=== PATIENT | female | born 1970 | race Caucasian/White ===

== ENCOUNTER 2018-01-18 00:19 | Emergency (ER) | payer BC ==
--- NOTE | 2018-01-18 00:46 | EDM.PDOC ---
ED HPI GENERAL MEDICAL PROBLEM - General Chief Complaint: Syncope Stated Complaint: SYNCOPAL EPISODE Time Seen by Provider: 01/18/18 00:25 Source of Information: Reports: Patient, EMS History Limitations: Reports: No Limitations - History of Present Illness INITIAL COMMENTS - FREE TEXT/NARRATIVE: 47 YO WF presents to ER by EMS after a syncopal episode at home. Pt with history of recurrent syncopal episodes, approximately 5 episodes over the last year. Pt has an event monitor in case of episodes. Pt states she hasn't had an episode in approximately 6 months. Pt reports she woke and when to the bathroom due to an upset stomach. Pt had an episode of diarrhea and while on the toilet, passed out in her husbands arms. Pt did not hit the ground, or hit her head. Pt remained in a seated position until she became arousable, which lasted approximately 30 seconds per . Pt denies chest pain, vomiting, abdominal pain, recent illness, no fever/chills. Pt currently states she feels fine. Pt denies headache or shortness of breath. Onset: Sudden Onset Date: 01/18/18 Onset Time: 00:00 Location: Reports: Generalized Severity: Mild Improves with: Reports: None Worsens with: Reports: None Associated Symptoms: Reports: Syncope, Other (diarrhea). Denies: Confusion, Chest Pain, Cough, cough w sputum, Diaphoresis, Fever/Chills, Headaches, Loss of Appetite, Malaise, Nausea/Vomiting, Rash, Seizure, Shortness of Breath, Weakness - Related Data Allergies Allergy/AdvReac Type Severity Reaction Status Date / Time citalopram Allergy Nausea Verified 01/18/18 00:30 codeine Allergy Anaphylactic Verified 01/18/18 00:30 Shock Home Meds: Home Meds LORazepam 0.5 mg PO BID PRN 01/18/18 [History] Ondansetron [Ondansetron ODT] 4 mg PO Q4H PRN 01/18/18 [History] ED ROS GENERAL - Review of Systems Review Of Systems: See Below Constitutional: Reports: No Symptoms HEENT: Reports: No Symptoms Respiratory: Reports: No Symptoms Cardiovascular: Reports: No Symptoms Endocrine: Reports: No Symptoms GI/Abdominal: Reports: Diarrhea : Reports: No Symptoms Musculoskeletal: Reports: No Symptoms Skin: Reports: No Symptoms Neurological: Reports: Syncope Psychiatric: Reports: No Symptoms Hematologic/Lymphatic: Reports: No Symptoms - Physical Exam Exam: See Below Exam Limited By: No Limitations General Appearance: Alert, WD/WN, No Apparent Distress Throat/Mouth: Normal Inspection, Normal Lips, Normal Teeth, Normal Gums, Normal Oropharynx, Normal Voice, No Airway Compromise Head Exam: Atraumatic, Normocephalic Neck: Normal Inspection, Supple, Non-Tender, Full Range of Motion Respiratory/Chest: No Respiratory Distress, Lungs Clear, Normal Breath Sounds, No Accessory Muscle Use, Chest Non-Tender Cardiovascular: Normal Peripheral Pulses, Regular Rate, Rhythm, No Edema, No Gallop, No JVD, No Murmur, No Rub GI/Abdominal: Normal Bowel Sounds, Soft, Non-Tender, No Organomegaly, No Distention, No Abnormal Bruit, No Mass Neuro Exam (Abbreviated): Alert, Oriented, CN II-XII Intact, Normal Cognition, Normal Gait, Normal Reflexes, No Motor/Sensory Deficits Back Exam: Normal Inspection, Full Range of Motion, NT Extremities: Normal Inspection, Normal Range of Motion, Non-Tender, No Pedal Edema, Normal Capillary Refill Psychiatric: Normal Affect, Normal Mood Skin Exam: Warm, Dry, Intact, Normal Color, No Rash EKG INTERPRETATION EKG Date: 01/18/18 Time: 00:46 Rhythm: NSR Rate (Beats/Min): 68 [place]: Normal P-Wave: Present QRS: Normal ST-T: Normal QT: Normal Comparison: NA - No Prior EKG Course - Vital Signs Last Recorded V/S: Last Vital Signs Temp 37.0 C 01/18/18 00:30 Pulse 66 01/18/18 00:55 Resp 20 01/18/18 00:55 BP 122/59 L 01/18/18 00:55 Pulse Ox 98 01/18/18 00:55 Orthostatic Blood Pressure [ 134/72 Standing] Orthostatic Blood Pressure [ 130/67 Sitting] Orthostatic Blood Pressure [ 118/62 Supine] - Orders/Labs/Meds Orders: Active Orders 24 hr Category Date Time Status Cardiac Monitoring [RC] . DIRECTED Care 01/18/18 00:28 Active EKG Documentation Completion [RC] ASDIRECTED Care 01/18/18 00:29 Ordered Orthostatic Vital Signs [RC] ASDIRECTED Care 01/18/18 00:28 Ordered Chest 1V Frontal [CR] Stat Exams 01/18/18 00:28 Ordered Potassium Chloride [Klor-Con M20] Med 01/18/18 01:23 Once 40 meq PO ONETIME ONE Sodium Chloride 0.9% @ 999 MLS/HR (1000ml) Med 01/18/18 00:49 Ordered Sodium Chloride 0.9% [Normal Saline] 1,000 ml IV .BOLUS EKG 12 Lead [EK] Routine Ther 01/18/18 00:28 Ordered Medication Orders Sodium Chloride (Normal Saline) 1,000 mls @ 999 mls/hr IV .BOLUS ONE Stop: 01/18/18 01:49 Last Admin: 01/18/18 00:52 Dose: 999 mls/hr Potassium Chloride (Klor-Con M20) 40 meq PO ONETIME ONE Stop: 01/18/18 01:24 Labs: Laboratory Tests 01/18/18 01/18/18 Range/Units 00:35 00:35 WBC 8.5 (5.0-10.0) 10^3/uL RBC 4.72 (3.80-5.50) 10^6/uL Hgb 14.4 (12.0-16.0) g/dL Hct 45.1 (37.0-47.0) % MCV 95.5 H (82.0-92.0) fL MCH 30.5 (27.0-31.0) pg MCHC 31.9 L (32.0-36.0) g/dL RDW 12.2 (11.5-14.5) % Plt Count 280 (150-300) 10^3/uL MPV 8.9 (7.4-10.4) fL Neut % (Auto) 40.8 L (50.0-70.0) % Lymph % (Auto) 46.0 H (20.0-40.0) % [place] % (Auto) 9.9 H (2.0-8.0) % Eos % (Auto) 2.4 (1.0-3.0) % Baso % (Auto) 0.9 (0.0-1.0) % Neut # (Auto) 3.5 (2.5-7.0) 10^3/uL Lymph # (Auto) 3.9 (1.0-4.0) 10^3/uL [place] # (Auto) 0.8 (0.1-0.8) 10^3/uL Eos # (Auto) 0.2 (0.1-0.3) 10^3/uL Baso # (Auto) 0.1 (0.0-0.1) 10^3/uL Sodium 140 (136-145) mmol/L Potassium 2.8 L (3.3-5.3) mmol/L Chloride 102 (98-115) mmol/L Carbon Dioxide 24.1 (21.0-32.0) mmol/L BUN 15 (6-25) mg/dL Creatinine 0.77 (0.51-1.17) mg/dL Est Cr Clr Drug Dosing 82.15 mL/min Estimated GFR (MDRD) > 60 mL/min Glucose 115 H (70-110) mg/dL Calcium 9.7 (8.7-10.3) mg/dL Total Bilirubin 0.3 (0.2-1.0) mg/dL AST 24 (15-37) U/L ALT 30 (12-78) U/L Alkaline Phosphatase 56 (46-116) IU/L Creatine Kinase 204 (26-276) U/L CK-MB (CK-2) 2.00 (0.00-4.30) ng/mL Troponin I 0.04 (0.00-0.070) ng/mL Total Protein 7.5 (6.4-8.2) g/dL Albumin 4.14 (3.00-4.80) g/dL Meds: Medications Generic Name Dose Route Start Last Admin Trade Name Freq PRN Reason Stop Dose Admin Sodium Chloride 1,000 mls @ 999 mls/hr 01/18/18 00:49 01/18/18 00:52 Normal Saline IV 01/18/18 01:49 999 mls/hr .BOLUS ONE Administration Potassium Chloride 40 meq 01/18/18 01:23 Klor-Con M20 PO 01/18/18 01:24 ONETIME ONE Discontinued Medications Generic Name Dose Route Start Last Admin Trade Name Freq PRN Reason Stop Dose Admin Ondansetron HCl 4 mg 01/18/18 00:49 01/18/18 01:07 Zofran IVPUSH 01/18/18 00:50 4 mg ONETIME ONE Administration - Radiology Interpretation Free Text/Narrative:: CXR- NAD - Re-Assessments/Exams Free Text/Narrative Re-Assessment/Exam: 01/18/18 00:49 orthostatic vital signs- normal; no hypotension or tachycardia Departure - Departure Time of Disposition: 01:26 Disposition: Home, Self-Care 01 Condition: Good Clinical Impression: Vasovagal syncope - Discharge Information Instructions: Implantable Loop Recorder Placement, Vasovagal Syncope, Adult Referrals: Alison New, BUR[facility] FILER [Primary Care Provider] - Forms: ED Department Discharge - My Orders Last 24 Hours: My Active Orders 01/18/18 00:28 Cardiac Monitoring [RC] . DIRECTED Orthostatic Vital Signs [RC] ASDIRECTED Chest 1V Frontal [CR] Stat EKG 12 Lead [EK] Routine 01/18/18 00:29 EKG Documentation Completion [RC] ASDIRECTED 01/18/18 00:49 Sodium Chloride 0.9% @ 999 MLS/HR (1000ml) Sodium Chloride 0.9% [Normal Saline] 1,000 ml IV .BOLUS 01/18/18 01:23 Potassium Chloride [Klor-Con M20] 40 meq PO ONETIME ONE - Assessment/Plan Last 24 Hours: My Active Orders 01/18/18 00:28 Cardiac Monitoring [RC] . DIRECTED Orthostatic Vital Signs [RC] ASDIRECTED Chest 1V Frontal [CR] Stat EKG 12 Lead [EK] Routine 01/18/18 00:29 EKG Documentation Completion [RC] ASDIRECTED 01/18/18 00:49 Sodium Chloride 0.9% @ 999 MLS/HR (1000ml) Sodium Chloride 0.9% [Normal Saline] 1,000 ml IV .BOLUS 01/18/18 01:23 Potassium Chloride [Klor-Con M20] 40 meq PO ONETIME ONE Assessment:: 1. Syncope- probable vasovagal 2. Hypokalemia Plan: 1. discharge home 2. follow up in clinic for further evaluation and treatment 3. return to ER for worsening symptoms
[2018-01-18] MEDS ORDERED: Ondansetron 4 MG/2 ML SDV IVPUSH ONE (00:49)
[2018-01-18] MEDS ORDERED: Sodium Chloride 0.9% 1,000 ML IV ONE (00:49)
[2018-01-18 01:17] LABS: CHLORIDE,CL 102 mmol/L (98-115); SODIUM,NA 140 mmol/L (136-145)
[2018-01-18] MEDS ORDERED: Potassium Chloride 20 MEQ Tab.ER PO ONE (01:23)
== END 2018-01-18 01:42 | disposition home or self-care (01) ==
LOC: KA.ED 00:19 → SUPCPDRO 00:19 → KA.ED 01:42
DX: R55 Syncope and collapse (principal); E87.6 Hypokalemia; Z88.5 Allergy status to narcotic agent; Z88.8 Allergy status to other drugs, medicaments and biological substances; Z79.899 Other long term (current) drug therapy
CPT/HCPCS: 71045; 80053; 82550; 82553; 84484; 85025; 93005; 96374; 99285; A9270; J2405; J7030

== ENCOUNTER 2018-02-20 23:06 | Observation (INO) | payer BC ==
[2018-02-20] MEDS ORDERED: Ondansetron 4 MG/2 ML SDV IVPUSH ONE (23:48)
[2018-02-21 00:32] LABS: ANION GAP 17.6 mmol/L (5-15); CHLORIDE,CL 102 mmol/L (98-115); SODIUM,NA 143 mmol/L (136-145)
[2018-02-21] MEDS ORDERED: Acetaminophen 325 MG Tab PO PRN (00:58)
[2018-02-21] MEDS ORDERED: Ondansetron 4 MG/2 ML SDV IVPUSH PRN (01:02)
--- NOTE | 2018-02-21 01:09 | EDM.PDOC ---
ED HPI GENERAL MEDICAL PROBLEM - General Chief Complaint: General Stated Complaint: tachycardia, nausea, lightheaded Time Seen by Provider: 02/20/18 23:15 Source of Information: Reports: Patient, Family () - History of Present Illness INITIAL COMMENTS - FREE TEXT/NARRATIVE: 47-year-old female presents to emergency room brought in by EMS with complaints of lightheadedness, nausea and palpitations. Patient has had a recent pacemaker placement for sick sinus syndrome. This was placed 2 weeks ago. She states she' s been doing very well. She did have an episode shortly after placement of her pacemaker where she had a syncopal episode. They turned her pacemaker up for rates between 60 and 80. She states she drinks plenty water has been feeling fairly well. She was at a baseball game this evening and felt lightheaded. She went to the [facility] EMS station where they did an EKG and this was reviewed by bench shear operator in [place] she is brought in now for further evaluation. Her only complaint currently is a mild nausea. She had an EKG showed normal sinus rhythm. She's not having any shortness of breath or chest pain. She is not experiencing palpitations. She did take a Zofran ODT but her nausea still persists. She felt clammy earlier but that is since resolved. Onset: Today Onset Date: 02/20/18 Onset Time: 22:00 Duration: Minutes:, Waxing/Waning Location: Reports: Chest Quality: Reports: Dull Severity: Moderate Improves with: Reports: Rest Associated Symptoms: Reports: Diaphoresis, Nausea/Vomiting, Weakness. Denies: Chest Pain, Cough, Headaches, Shortness of Breath, Syncope Treatments FOOD DEHYDRATOR OPERATOR: Reports: Other Medication(s) (Zofran ODT) - Related Data Allergies Allergy/AdvReac Type Severity Reaction Status Date / Time citalopram Allergy Nausea Verified 02/20/18 23:22 codeine Allergy Anaphylactic Verified 02/20/18 23:22 Shock Home Meds: Home Meds LORazepam 0.5 mg PO BID PRN 01/18/18 [History] Ondansetron [Ondansetron ODT] 4 mg PO Q4H PRN 01/18/18 [History] Docusate Sodium 100 mg PO DAILY PRN 02/21/18 [History] Ibuprofen 400 mg PO Q8H PRN 02/21/18 [History] L.acidoph,Paracasei, B.lactis [Probiotic] 1 cap PO DAILY 02/21/18 [History] Past Medical History HEENT History: Reports: Other (See Below) Other HEENT History: glasses Cardiovascular History: Reports: Pacemaker, Syncope Other Cardiovascular History: pacer placed on 02/09/2108 for sick sinus syndrom - pacer does transmit via bedside monitor PREDATORY ANIMAL EXTERMINATOR History: Reports: , Other (See Below) Other PREDATORY ANIMAL EXTERMINATOR History: falopian tubes removed bilat Psychiatric History: Reports: Anxiety, Depression - Infectious Disease History Infectious Disease History: Reports: Chicken Pox - Past Surgical History Head Surgeries/Procedures: Reports: None HEENT Surgical History: Reports: None Cardiovascular Surgical History: Reports: Other (See Below) Other Cardiovascular Surgeries/Procedures: Implanted Loop recorder - has been removed Musculoskeletal Surgical History: Reports: Other (See Below) Other Musculoskeletal Surgeries/Procedures:: ACL repair L knee Social & Family History - Caffeine Use Caffeine Use: Reports: Coffee ED ROS GENERAL - Review of Systems Review Of Systems: See Below Constitutional: Reports: Diaphoresis HEENT: Reports: No Symptoms Respiratory: Reports: No Symptoms Cardiovascular: Reports: No Symptoms Endocrine: Reports: No Symptoms GI/Abdominal: Reports: No Symptoms : Reports: No Symptoms Musculoskeletal: Reports: No Symptoms Skin: Reports: No Symptoms Neurological: Reports: Weakness, Other (Lightheadedness). Denies: Confusion, Dizziness, Numbness, Syncope, Tingling, Trouble Speaking, Change in Speech Psychiatric: Reports: No Symptoms Hematologic/Lymphatic: Reports: No Symptoms Immunologic: Reports: No Symptoms ED EXAM, GENERAL - Physical Exam Exam: See Below Exam Limited By: No Limitations General Appearance: Alert, WD/WN, No Apparent Distress, Thin Eye Exam: Bilateral Eye: PERRL Ears: Hearing Grossly Normal Nose: Normal Inspection Throat/Mouth: Normal Inspection, Normal Voice, No Airway Compromise Head: Atraumatic, Normocephalic Neck: Normal Inspection, Supple, Non-Tender, Full Range of Motion. No: Lymphadenopathy (L), Lymphadenopathy (R) Respiratory/Chest: No Respiratory Distress, Lungs Clear Cardiovascular: Normal Peripheral Pulses, Regular Rate, Rhythm, No Edema, No Murmur Back Exam: Normal Inspection, Full Range of Motion Extremities: Normal Inspection, Normal Range of Motion Neurological: Alert, Oriented, No Motor/Sensory Deficits Psychiatric: Normal Affect, Normal Mood Skin Exam: Warm, Dry, Intact, Normal Color, No Rash EKG INTERPRETATION EKG Date: 02/20/18 Time: 23:30 Rhythm: NSR [place]: Normal P-Wave: Present QRS: Normal ST-T: Normal QT: Normal Comparison: NA - No Prior EKG Course - Vital Signs Last Recorded V/S: Last Vital Signs Temp 98.4 F 02/20/18 23:20 Pulse 67 02/21/18 00:38 Resp 12 02/21/18 00:38 BP 110/58 L 02/21/18 00:38 Pulse Ox 100 02/20/18 23:20 - Orders/Labs/Meds Orders: Active Orders 24 hr Category Date Time Status Patient Status [ADT] Routine ADT 02/21/18 00:58 Ordered EKG Documentation Completion [RC] ASDIRECTED Care 02/20/18 23:52 Active Up With Assistance [RC] ASDIRECTED Care 02/21/18 00:58 Ordered Vital Signs [RC] Q4H Care 02/21/18 00:58 Ordered Regular Diet [DIET] Diet 02/21/18 Breakfast Ordered Acetaminophen [Tylenol] Med 02/21/18 00:58 Ordered 650 mg PO Q4H PRN Ondansetron [Zofran] Med 02/21/18 01:02 Ordered 4 mg IVPUSH Q6H PRN EKG 12 Lead [EK] Routine Ther 02/20/18 23:51 Ordered Medication Orders Acetaminophen (Tylenol) 650 mg PO Q4H PRN PRN Reason: analgesia/fever Ondansetron HCl (Zofran) 4 mg IVPUSH Q6H PRN PRN Reason: Nausea/Vomiting Labs: Laboratory Tests 02/20/18 02/20/18 Range/Units 23:02 23:02 WBC 6.5 (5.0-10.0) 10^3/uL RBC 4.18 (3.80-5.50) 10^6/uL Hgb 13.6 (12.0-16.0) g/dL Hct 39.6 (37.0-47.0) % MCV 94.7 H (82.0-92.0) fL MCH 32.5 H (27.0-31.0) pg MCHC 34.3 (32.0-36.0) g/dL RDW 12.3 (11.5-14.5) % Plt Count 298 (150-300) 10^3/uL MPV 8.8 (7.4-10.4) fL Neut % (Auto) 51.2 (50.0-70.0) % Lymph % (Auto) 35.8 (20.0-40.0) % [place] % (Auto) 9.2 H (2.0-8.0) % Eos % (Auto) 2.6 (1.0-3.0) % Baso % (Auto) 1.2 H (0.0-1.0) % Neut # (Auto) 3.3 (2.5-7.0) 10^3/uL Lymph # (Auto) 2.3 (1.0-4.0) 10^3/uL [place] # (Auto) 0.6 (0.1-0.8) 10^3/uL Eos # (Auto) 0.2 (0.1-0.3) 10^3/uL Baso # (Auto) 0.1 (0.0-0.1) 10^3/uL Sodium 143 (136-145) mmol/L Potassium 3.6 (3.3-5.3) mmol/L Chloride 102 (98-115) mmol/L Carbon Dioxide 27.0 (21.0-32.0) mmol/L Anion Gap 17.6 H (5-15) mmol/L BUN 13 (6-25) mg/dL Creatinine 0.71 (0.51-1.17) mg/dL Est Cr Clr Drug Dosing 89.09 mL/min Estimated GFR (MDRD) > 60 mL/min Glucose 112 mg/dL Calcium 9.3 (8.7-10.3) mg/dL Meds: Medications Generic Name Dose Route Start Last Admin Trade Name Freq PRN Reason Stop Dose Admin Acetaminophen 650 mg 02/21/18 00:58 Tylenol PO Q4H PRN analgesia/fever Ondansetron HCl 4 mg 02/21/18 01:02 Zofran IVPUSH Q6H PRN Nausea/Vomiting Discontinued Medications Generic Name Dose Route Start Last Admin Trade Name Freq PRN Reason Stop Dose Admin Ondansetron HCl 4 mg 02/20/18 23:48 02/20/18 23:57 Zofran IVPUSH 02/20/18 23:49 4 mg ONETIME ONE Administration Departure - Departure Time of Disposition: 01:13 Disposition: Refer to Observation Condition: Good Clinical Impression: S/P placement of cardiac pacemaker, Lightheadedness - Discharge Information Referrals: Alison New MANAGER PRIMARY CARE [Primary Care Provider] - - My Orders Last 24 Hours: My Active Orders 02/20/18 23:51 EKG 12 Lead [EK] Routine 02/20/18 23:52 EKG Documentation Completion [RC] ASDIRECTED 02/21/18 00:58 Patient Status [ADT] Routine Up With Assistance [RC] ASDIRECTED Vital Signs [RC] Q4H Acetaminophen [Tylenol] 650 mg PO Q4H PRN 02/21/18 01:02 Ondansetron [Zofran] 4 mg IVPUSH Q6H PRN 02/21/18 Breakfast Regular Diet [DIET] - Assessment/Plan Last 24 Hours: My Active Orders 02/20/18 23:51 EKG 12 Lead [EK] Routine 02/20/18 23:52 EKG Documentation Completion [RC] ASDIRECTED 02/21/18 00:58 Patient Status [ADT] Routine Up With Assistance [RC] ASDIRECTED Vital Signs [RC] Q4H Acetaminophen [Tylenol] 650 mg PO Q4H PRN 02/21/18 01:02 Ondansetron [Zofran] 4 mg IVPUSH Q6H PRN 02/21/18 Breakfast Regular Diet [DIET] Assessment:: Recent pacemaker placement Lightheadedness Nausea Plan: Patient will be admitted for observational status on cardiac telemetry. She has had couple episodes since her pacemaker placement where she has had one syncopal episode as well as lightheadedness. We will monitor overnight make sure that there is no significant arrhythmias occurring. We'll place her on observational status. Dr. Duane Suarez for this who will assume her care.
[2018-02-21] MEDS ORDERED: Metoclopramide 10 MG/2 ML SDV IVPUSH ONE (02:01)
[2018-02-21] MEDS ORDERED: Lidocaine 2% 100 MG/5 ML Syringe IVPUSH PRN (04:05)
[2018-02-21] MEDS ORDERED: EPINEPHrine 1:10,000 1 MG/10 ML Syringe IVPUSH PRN (04:05)
[2018-02-21] MEDS ORDERED: Atropine 0.1 MG/ML 10 ML Syringe IVPUSH PRN (04:05)
[2018-02-21] MEDS ORDERED: Nitroglycerin 0.4 MG Tab.SL SL PRN (04:05)
--- NOTE | 2018-02-21 10:00 | PCM.HP ---
H&P History of Present Illness - General Date of Service: 02/21/18 Admit Problem/Dx: Admission Diagnosis/Problem Admission Diagnosis/Problem Cardiac pacemaker procedure Source of Information: Patient, Old Records, RN History Limitations: Reports: No Limitations - History of Present Illness Initial Comments - Free Text/Narative: This 47-year-old was admitted through the ED for observation after she had a near syncope episode while attending a baseball game last night prompting ambulance call. She was attending her son's baseball game she noticed she started getting nausea with mild GI symptoms, slight chest palpitations and lightheadedness. Patient does have SSS with recent biventricular permanent pacemaker placed February 08, 2018 however while in [place] under observation and under the care of Dr. Tapia after pacemaker placement she had developed proximately 1 minute unresponsiveness with captured bradycardia (40') on her pacemaker requiring threshold adjustments--lower rate increased to 60 bpm, upper rate changed from 100 to 80 (only for 1 minute) to avoid patient feeling like her heart is racing. Her symptoms that prompted her ED visit she stated were very similar that eventually prompted cardiology to place pacemaker. Prior to her pacemaker placed she had extensive evaluation at [facility] including EKG, echocardiogram, or monitors however it was not until she had an implantable cardiac device that eventually demonstrated her to have episodes of asystole eventually prompting cardiac pacemaker placement. During her symptoms and while at the baseball game she sought help at the EMS station, EKG was performed and transmitted to marksmanship instructor in [place] questing she be brought in further evaluation. ED physical examination was negative for shortness of breath chest pain or palpitations. She had taken a Zofran ODT however she was still nauseous while in the ED. She does have an appointment with cardiology March 19 however she was informed if she has any episodes she could likely get seen sooner. Potassium normally runs low when she has episodes. Recent CXR showed intact pacer leads, and no pleural effusion or pneumothorax. She denies chest pain or SOB - Related Data Allergies/Adverse Reactions: Allergies Allergy/AdvReac Type Severity Reaction Status Date / Time citalopram Allergy Nausea Verified 02/20/18 23:22 codeine Allergy Anaphylactic Verified 02/20/18 23:22 Shock Home Medications: Home Meds LORazepam 0.5 mg PO BID PRN 01/18/18 [History] Ondansetron [Ondansetron ODT] 4 mg PO Q4H PRN 01/18/18 [History] Docusate Sodium 100 mg PO DAILY PRN 02/21/18 [History] Ibuprofen 400 mg PO Q8H PRN 02/21/18 [History] L.acidoph,Paracasei, B.lactis [Probiotic] 1 cap PO DAILY 02/21/18 [History] Past Medical History HEENT History: Reports: Other (See Below) Other HEENT History: glasses Cardiovascular History: Reports: Pacemaker, Syncope Other Cardiovascular History: pacer placed on 02/09/2108 for sick sinus syndrome - pacer does transmit via bedside monitor 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: Reports: , Other (See Below) Other OB/BYN History: falopian tubes removed bilat Psychiatric History: Reports: Anxiety, Depression - Infectious Disease History Infectious Disease History: Reports: Chicken Pox - Past Surgical History Head Surgeries/Procedures: Reports: None HEENT Surgical History: Reports: None Cardiovascular Surgical History: Reports: Other (See Below) Other Cardiovascular Surgeries/Procedures: Implanted Loop recorder - has been removed Musculoskeletal Surgical History: Reports: Other (See Below) Other Musculoskeletal Surgeries/Procedures:: ACL repair L knee Social & Family History - Family History HEENT: Reports: None Cardiac: Reports: Hypertension Respiratory: Reports: None GI: Reports: None : Reports: None OBGYN: Reports: None Musculoskeletal: Reports: None Neurological: Reports: None Psychiatric: Reports: Depression Endocrine/Metabolic: Reports: Diabetes, type II Hematologic: Reports: Other (See Below) (father with lymphoma) Immunologic: Reports: None Dermatologic: Reports: None - Tobacco Use Smoking Status *Q: Never Smoker - Caffeine Use Caffeine Use: Reports: Coffee - Recreational Drug Use Recreational Drug Use: No H&P Review of Systems - Review of Systems: Review Of Systems: See Below General: Reports: Malaise. Denies: Fever, Chills, Night Sweats, Diaphoresis, Decreased Appetite HEENT: Reports: No Symptoms Pulmonary: Reports: No Symptoms Cardiovascular: Reports: Syncope. Denies: Chest Pain, Palpitations, PND, Edema , Lightheadedness, Claudication Gastrointestinal: Reports: No Symptoms, Constipation (recent hx of opoid induced constipation) Genitourinary: Reports: No Symptoms Musculoskeletal: Reports: No Symptoms Skin: Reports: No Symptoms Psychiatric: Reports: No Symptoms Neurological: Reports: Syncope, Weakness Hematologic/Lymphatic: Reports: No Symptoms Immunologic: Reports: No Symptoms Exam - Exam Exam: See Below - Vital Signs Vital Signs: Last Vital Signs Temp 98.4 F 02/21/18 06:51 Pulse 62 02/21/18 06:51 Resp 16 02/21/18 06:51 BP 104/58 L 02/21/18 06:51 Pulse Ox 98 02/21/18 06:51 Weight: 131 lb 12.8 oz - Exam Quality Assessment: No: Supplemental Oxygen General: Alert, Oriented, Mild Distress Neck: Supple Lungs: Clear to Auscultation, Normal Respiratory Effort Cardiovascular: Regular Rate, Regular Rhythm, Other (Assess to her cardiac status left lateral decubitus, normal) GI/Abdominal Exam: Soft (Female) Exam: Deferred Back Exam: No: CVA Tenderness (L), CVA Tenderness (R) Extremities: No Pedal Edema Skin: Warm, Dry, Intact Neurological: Cranial Nerves Intact, Reflexes Equal Bilateral Neuro Extensive - Mental Status: Alert, Oriented x3. No: Normal Mood/Affect ( Slightly tearful this morning) Neuro Extensive - Motor, Sensory, Reflexes: CN II-XII Intact, Normal Gait, Normal Reflexes Psychiatric: Alert, Anxious (Slightly emotional and tearful this morning) - Patient Data Lab Results Last 24 hrs: Laboratory Results - last 24 hr 02/20/18 02/20/18 Range/Units 23:02 23:02 WBC 6.5 (5.0-10.0) 10^3/uL RBC 4.18 (3.80-5.50) 10^6/uL Hgb 13.6 (12.0-16.0) g/dL Hct 39.6 (37.0-47.0) % MCV 94.7 H (82.0-92.0) fL MCH 32.5 H (27.0-31.0) pg MCHC 34.3 (32.0-36.0) g/dL RDW 12.3 (11.5-14.5) % Plt Count 298 (150-300) 10^3/uL MPV 8.8 (7.4-10.4) fL Neut % (Auto) 51.2 (50.0-70.0) % Lymph % (Auto) 35.8 (20.0-40.0) % [place] % (Auto) 9.2 H (2.0-8.0) % Eos % (Auto) 2.6 (1.0-3.0) % Baso % (Auto) 1.2 H (0.0-1.0) % Neut # (Auto) 3.3 (2.5-7.0) 10^3/uL Lymph # (Auto) 2.3 (1.0-4.0) 10^3/uL [place] # (Auto) 0.6 (0.1-0.8) 10^3/uL Eos # (Auto) 0.2 (0.1-0.3) 10^3/uL Baso # (Auto) 0.1 (0.0-0.1) 10^3/uL Sodium 143 (136-145) mmol/L Potassium 3.6 (3.3-5.3) mmol/L Chloride 102 (98-115) mmol/L Carbon Dioxide 27.0 (21.0-32.0) mmol/L Anion Gap 17.6 H (5-15) mmol/L BUN 13 (6-25) mg/dL Creatinine 0.71 (0.51-1.17) mg/dL Est Cr Clr Drug Dosing 89.09 mL/min Estimated GFR (MDRD) > 60 mL/min Glucose 112 mg/dL Calcium 9.3 (8.7-10.3) mg/dL Result Diagrams: 02/20/18 23:02 02/20/18 23:02 EKG INTERPRETATION EKG Date: 02/20/18 Rhythm: NSR [place]: Normal P-Wave: Present QRS: Normal ST-T: Normal QT: Normal Comparison: No Change Problem List Initiated/Reviewed/Updated: Yes Orders Last 24hrs: Active Orders 24 hr Category Date Time Status Patient Status [ADT] Routine ADT 02/21/18 00:58 Ordered EKG Documentation Completion [RC] ASDIRECTED Care 02/20/18 23:52 Active Up With Assistance [RC] ASDIRECTED Care 02/21/18 00:58 Active Vital Signs [RC] 0300,0700,1100,1500,1900,2300 Care 02/21/18 00:58 Active Regular Diet [DIET] Diet 02/21/18 Breakfast Active Acetaminophen [Tylenol] Med 02/21/18 00:58 Active 650 mg PO Q4H PRN Atropine [Atropine 0.1 MG/ML] Med 02/21/18 04:05 Active 0 mg IVPUSH ASDIRECTED PRN EPINEPHrine [EPINEPHrine 1:10,000] Med 02/21/18 04:05 Active 1 mg IVPUSH ASDIRECTED PRN Lidocaine 2% [Xylocaine 2%] Med 02/21/18 04:05 Active 0 mg IVPUSH ASDIRECTED PRN Nitroglycerin [Nitrostat] Med 02/21/18 04:05 Active 0.4 mg SL ASDIRECTED PRN Ondansetron [Zofran] Med 02/21/18 01:02 Active 4 mg IVPUSH Q6H PRN EKG 12 Lead [EK] Routine Ther 02/20/18 23:51 Ordered Medication Orders Acetaminophen (Tylenol) 650 mg PO Q4H PRN PRN Reason: analgesia/fever Atropine Sulfate (Atropine 0.1 Mg/Ml) 0 mg IVPUSH ASDIRECTED PRN PRN Reason: Heart Epinephrine HCl (Epinephrine 1:10,000) 1 mg IVPUSH ASDIRECTED PRN PRN Reason: Heart Lidocaine HCl (Xylocaine 2%) 0 mg IVPUSH ASDIRECTED PRN PRN Reason: Heart Nitroglycerin (Nitrostat) 0.4 mg SL ASDIRECTED PRN PRN Reason: Heart Ondansetron HCl (Zofran) 4 mg IVPUSH Q6H PRN PRN Reason: Nausea/Vomiting Last Admin: 02/21/18 08:49 Dose: 4 mg Assessment/Plan Comment:: HISTORY OF PRESENT ILLNESS This 47-year-old was admitted through the ED for observation after she had a near syncope episode while attending a baseball game last night prompting ambulance call. She was attending her son's baseball game she noticed she started getting nausea with mild GI symptoms, slight chest palpitations and lightheadedness. Patient does have SSS with recent biventricular permanent pacemaker placed February 08, 2018 however while in [place] under observation and under the care of Dr. Tapia after pacemaker placement she had developed proximately 1 minute unresponsiveness with captured bradycardia (40') on her pacemaker requiring threshold adjustments--lower rate increased to 60 bpm, upper rate changed from 100 to 80 (only for 1 minute) to avoid patient feeling like her heart is racing. Her symptoms that prompted her ED visit she stated were very similar that eventually prompted cardiology to place pacemaker. Prior to her pacemaker placed she had extensive evaluation at [facility] including EKG, echocardiogram, or monitors however it was not until she had an implantable cardiac device that eventually demonstrated her to have episodes of asystole eventually prompting cardiac pacemaker placement. During her symptoms and while at the baseball game she sought help at the EMS station, EKG was performed and transmitted to marksmanship instructor in [place] questing she be brought in further evaluation. ED physical examination was negative for shortness of breath chest pain or palpitations. She had taken a Zofran ODT however she was still nauseous while in the ED. She does have an appointment with cardiology March 19 however she was informed if she has any episodes she could likely get seen sooner. Potassium normally runs low when she has episodes. Recent CXR showed intact pacer leads, and no pleural effusion or pneumothorax. She denies chest pain or SOB Pertinent ED findings EKG, NSR, no aberrancy Blood pressure 130/70 Normal electrolytes, Hospital problems Sick sinus syndrome, recent biventricular pacemaker, with subsequent adjustments Anxiety/depression Overall plan today, Lorazepam today, Assess Mg, TSH, telemetry, have spouse bring in pacemaker transmitter, ambulate in halls today, add low dose oral potassium, continue observation and monitor her today. Activity: Due to recent pacemaker no raising arm above shoulder level for 6 weeks, no lifting greater than 10 pounds for 6 weeks. Patient does agree to stay today for further observation however likely will discharge in a.m. and will consult with cardiology for earlier appointment and follow-up.
[2018-02-21] MEDS ORDERED: Potassium Bicarbonate/Potassium Chloride 25 MEQ Tab.Eff PO SCH (12:00)
[2018-02-21] MEDS ORDERED: Ondansetron 4 MG Tab.DIS PO PRN (12:16)
[2018-02-21] MEDS ORDERED: Docusate Sodium 100 MG Cap PO PRN (12:19)
[2018-02-21] MEDS ORDERED: LORazepam 0.5 MG Tab PO PRN (12:30)
--- NOTE | 2018-02-21 20:48 | PCM.DCSUM1 ---
Discharge Summary - Hospital Course Diagnosis: Stroke: No - Discharge Data Discharge Date: 02/21/18 Discharge Disposition: Home, Self-Care 01 Condition: Good - Patient Summary/Data Complications: none Recommended Follow-up Testing/Procedures: f/u with PCP tomorrow. May need sooner cardiology appt. - Discharge Plan *PRESCRIPTION DRUG MONITORING PROGRAM REVIEWED*: No *COPY OF PRESCRIPTION DRUG MONITORING REPORT IN PATIENT DALILA: No Home Medications: Home Meds LORazepam 0.5 mg PO BID PRN 01/18/18 [History] Ondansetron [Ondansetron ODT] 4 mg PO Q4H PRN 01/18/18 [History] Docusate Sodium 100 mg PO DAILY PRN 02/21/18 [History] Ibuprofen 400 mg PO Q8H PRN 02/21/18 [History] L.acidoph,Paracasei, B.lactis [Probiotic] 1 cap PO DAILY 02/21/18 [History] Forms: ED Department Discharge Referrals: Alison New, UTILITY ASSEMBLER [Primary Care Provider] - - Discharge Summary/Plan Comment DC Time >30 min.: No Discharge Summary/Plan Comment: Final Dx: Near Syncope Sick sinus syndrome Anxiety/depression History This 47-year-old was admitted through the ED for observation after she had a near syncope episode while attending a baseball game last night prompting ambulance call. She was attending her son's baseball game she noticed she started getting nausea with mild GI symptoms, slight chest palpitations and lightheadedness. Patient does have SSS with recent biventricular permanent pacemaker placed February 08, 2018 however while in [place] under observation and under the care of Dr. Tapia after pacemaker placement she had developed proximately 1 minute unresponsiveness with captured bradycardia (40') on her pacemaker requiring threshold adjustments--lower rate increased to 60 bpm, upper rate changed from 100 to 80 (only for 1 minute) to avoid patient feeling like her heart is racing. Her symptoms that prompted her ED visit she stated were very similar that eventually prompted cardiology to place pacemaker. Prior to her pacemaker placed she had extensive evaluation at [facility] including EKG, echocardiogram, or monitors however it was not until she had an implantable cardiac device that eventually demonstrated her to have episodes of asystole eventually prompting cardiac pacemaker placement. During her symptoms and while at the baseball game she sought help at the EMS station, EKG was performed and transmitted to substation operator conversion in [place] questing she be brought in further evaluation. ED physical examination was negative for shortness of breath chest pain or palpitations. She had taken a Zofran ODT however she was still nauseous while in the ED. She does have an appointment with cardiology March 19 however she was informed if she has any episodes she could likely get seen sooner. Potassium normally runs low when she has episodes. Recent CXR showed intact pacer leads, and no pleural effusion or pneumothorax. She denies chest pain or SOB Pertinent ED findings EKG, NSR, no aberrancy Blood pressure 130/70 Normal electrolytes, Hospital Course Went well, no aberrancy on ECG strips, I had her spouse bring in pacemaker transmitted to compare/coorelate with hospital lead II. She had no c/p, sob, and her nausea improved with reglan. Mg, TSH , Trop was normal. VSS; I did give her low dose K+. She voided well, ambulated in halls. She had some mild anxiety and was tx with home lorazapam. She desired to be released earlier than my comfort level but was given instructions on sx to monitor. Medication adjustments on d/c: Home Lorazapam scheduled for 1-2 days Follow up PCP Thursday May need sooner cardiology appt - Patient Data Vitals - Most Recent: Last Vital Signs Temp 97.4 F 02/21/18 15:00 Pulse 60 02/21/18 15:00 Resp 16 02/21/18 15:00 BP 101/64 02/21/18 15:00 Pulse Ox 97 02/21/18 15:00 Weight - Most Recent: 131 lb 12.8 oz I&O - Last 24 hours: Intake & Output 02/21/18 02/21/18 02/21/18 06:59 14:59 22:59 Intake Total 200 1450 Output Total 200 1900 Balance 0 -450 Lab Results - Last 24 hrs: Laboratory Results - last 24 hr 02/20/18 02/20/18 02/21/18 Range/Units 23:02 23:02 12:23 WBC 6.5 (5.0-10.0) 10^3/uL RBC 4.18 (3.80-5.50) 10^6/uL Hgb 13.6 (12.0-16.0) g/dL Hct 39.6 (37.0-47.0) % MCV 94.7 H (82.0-92.0) fL MCH 32.5 H (27.0-31.0) pg MCHC 34.3 (32.0-36.0) g/dL RDW 12.3 (11.5-14.5) % Plt Count 298 (150-300) 10^3/uL MPV 8.8 (7.4-10.4) fL Neut % (Auto) 51.2 (50.0-70.0) % Lymph % (Auto) 35.8 (20.0-40.0) % [place] % (Auto) 9.2 H (2.0-8.0) % Eos % (Auto) 2.6 (1.0-3.0) % Baso % (Auto) 1.2 H (0.0-1.0) % Neut # (Auto) 3.3 (2.5-7.0) 10^3/uL Lymph # (Auto) 2.3 (1.0-4.0) 10^3/uL [place] # (Auto) 0.6 (0.1-0.8) 10^3/uL Eos # (Auto) 0.2 (0.1-0.3) 10^3/uL Baso # (Auto) 0.1 (0.0-0.1) 10^3/uL Sodium 143 (136-145) mmol/L Potassium 3.6 (3.3-5.3) mmol/L Chloride 102 (98-115) mmol/L Carbon Dioxide 27.0 (21.0-32.0) mmol/L Anion Gap 17.6 H (5-15) mmol/L BUN 13 (6-25) mg/dL Creatinine 0.71 (0.51-1.17) mg/dL Est Cr Clr Drug Dosing 89.09 mL/min Estimated GFR (MDRD) > 60 mL/min Glucose 112 mg/dL Calcium 9.3 (8.7-10.3) mg/dL Magnesium 1.9 (1.8-2.4) mg/dL Troponin I < 0.04 (0.00-0.070) ng/mL Med Orders - Current: Current Medications Discontinued Medications Acetaminophen (Tylenol) 650 mg PO Q4H PRN PRN Reason: analgesia/fever Atropine Sulfate (Atropine 0.1 Mg/Ml) 0 mg IVPUSH ASDIRECTED PRN PRN Reason: Heart Docusate Sodium (Colace) 100 mg PO DAILY PRN PRN Reason: CONSTIPATION Epinephrine HCl (Epinephrine 1:10,000) 1 mg IVPUSH ASDIRECTED PRN PRN Reason: Heart Lactobacillus Acidophilus/Rhamnosus (Multi-Susi Plus) 1 cap PO DAILY CARMELA Lidocaine HCl (Xylocaine 2%) 0 mg IVPUSH ASDIRECTED PRN PRN Reason: Heart Lorazepam (Ativan) 0.5 mg PO BID PRN PRN Reason: ANXIETY Last Admin: 02/21/18 11:15 Dose: 0.5 mg Metoclopramide HCl (Reglan) 5 mg IVPUSH ONETIME ONE Stop: 02/21/18 02:02 Last Admin: 02/21/18 02:47 Dose: 5 mg Nitroglycerin (Nitrostat) 0.4 mg SL ASDIRECTED PRN PRN Reason: Heart Ondansetron HCl (Zofran) 4 mg IVPUSH ONETIME ONE Stop: 02/20/18 23:49 Last Admin: 02/20/18 23:57 Dose: 4 mg Ondansetron HCl (Zofran) 4 mg IVPUSH Q6H PRN PRN Reason: Nausea/Vomiting Last Admin: 02/21/18 08:49 Dose: 4 mg Ondansetron HCl (Zofran Odt) 4 mg PO Q4H PRN PRN Reason: Nausea Potassium Bicarb/Potassium Chloride (Potassium Chloride, Effervescent) 25 meq PO DAILY CARMELA Last Admin: 02/21/18 12:48 Dose: 25 meq
[2018-02-22] MEDS ORDERED: B.Bifidum/B.Longum/L.Acidophilus/L.Rhamnosus (Probiotic) Cap PO SCH (09:00)
== END 2018-02-21 16:05 | disposition home or self-care (01) ==
LOC: KA.ED 23:06 → SUPCPDRO 23:06 → KA.MS 02-21 00:55
PROVIDERS: ADMIT Physician Assistant; ATTEND Nurse Practitioner Family
DX: R55 Syncope and collapse (principal); I49.5 Sick sinus syndrome; I10 Essential (primary) hypertension; E11.9 Type 2 diabetes mellitus without complications; Z79.899 Other long term (current) drug therapy; Z95.0 Presence of cardiac pacemaker; Z88.8 Allergy status to other drugs, medicaments and biological substances; Z88.5 Allergy status to narcotic agent
CPT/HCPCS: 36415; 80048; 83735; 84484; 85025; 96374; 99285; A9270; J2405; J2765; 96375; 96376; G0378

== ENCOUNTER 2020-09-19 16:30 | Observation (INO) | payer OTHER ==
[2020-09-19] MEDS ORDERED: LORazepam 0.5 MG Tab PO PRN (16:59)
[2020-09-19] MEDS ORDERED: Ondansetron 4 MG Tab.DIS PO PRN (16:59)
[2020-09-19] MEDS ORDERED: Acetaminophen 325 MG Tab PO PRN (16:59)
[2020-09-19] MEDS ORDERED: Aspirin 81 MG Tab.Chew PO ONE ×2 (17:02→19:45)
[2020-09-19] MEDS ORDERED: Sodium Chloride 0.9% 10 ML Syringe FLUSH PRN (18:19)
[2020-09-19] MEDS ORDERED: EPINEPHrine 1:10,000 1 MG/10 ML Syringe IVPUSH PRN (18:19)
[2020-09-19] MEDS ORDERED: Nitroglycerin 0.4 MG Tab.SL SL PRN (18:19)
[2020-09-19] MEDS ORDERED: Atropine 0.1 MG/ML 10 ML Syringe IVPUSH PRN (18:19)
[2020-09-19] MEDS ORDERED: Lidocaine 2% 100 MG/5 ML Syringe IVPUSH PRN (18:19)
--- NOTE | 2020-09-19 19:28 | CR ---
[id number] RAD/RAD Chest PA And Lateral EXAM: RAD Chest PA And Lateral INDICATION: CHEST PAIN COMPARISON: January 18, 2018. DISCUSSION: Left chest wall cardiac conduction device has been placed since the prior examination. Cardiomediastinal silhouette is normal in size and contour. Lungs are clear. No pleural effusion or pneumothorax. IMPRESSION: No acute findings in the chest. Fabio Banuelos MD 09/19/20 [id number] Thank you for allowing us to participate in the care of your patient.
[2020-09-19] MEDS: Midodrine 5 MG Tab PO SCH (20:41)
[2020-09-20] MEDS ORDERED: Aspirin 81 MG Tab.EC PO SCH (09:00)
[2020-09-20] MEDS ORDERED: Potassium Chloride 10 MEQ Tab.ER PO SCH (09:00)
[2020-09-20] MEDS: Midodrine 5 MG Tab PO SCH (09:20)
--- NOTE | 2020-09-20 10:03 | PCM.DCSUM1 ---
Discharge Summary - Hospital Course Diagnosis: Stroke: No - Discharge Data Discharge Date: 09/20/20 Discharge Disposition: Home, Self-Care 01 Condition: Good - Referral to Home Health Primary Care Physician: Alison New NP - Patient Instructions Diet: Usual Diet as Tolerated Activity: No Strenuous Activities, Rest and Relax Today Driving: May Drive Today Showering/Bathing: May Shower Notify Provider of: Increased Pain, Nausea and/or Vomiting - Discharge Plan *PRESCRIPTION DRUG MONITORING PROGRAM REVIEWED*: Not Applicable *COPY OF PRESCRIPTION DRUG MONITORING REPORT IN PATIENT DALILA: Not Applicable Home Medications: Home Meds LORazepam 0.5 mg PO BID PRN 01/18/18 [History] Ondansetron [Ondansetron ODT] 4 mg PO Q4H PRN 01/18/18 [History] Ibuprofen 400 mg PO Q8H PRN 02/21/18 [History] L.acidoph,Paracasei, B.lactis [Probiotic] 1 cap PO DAILY 02/21/18 [History] Acetaminophen [Tylenol] 650 mg PO Q4HR PRN 09/19/20 [History] Aspirin [Aspirin EC] 81 mg PO DAILY 09/19/20 [History] Biotin 1,000 mcg PO DAILY 09/19/20 [History] Midodrine 5 mg PO TID 09/19/20 [History] Potassium Chloride [Klor-Con M10] 10 meq PO DAILY 09/19/20 [History] SUMAtriptan [Imitrex] 25 mg PO Q2HR PRN 09/19/20 [History] traMADol [Ultram] 50 mg PO Q6HR PRN 09/19/20 [History] valACYclovir [Valtrex] 2,000 mg PO Q12HR PRN 09/19/20 [History] Referrals: Alison New NP [Primary Care Provider] - - Discharge Summary/Plan Comment DC Time >30 min.: No Discharge Summary/Plan Comment: Final diagnosis chest pain, resolved, atypical, doubtful if pathological Wellens/ischemic syndrome since shallow V1 inversion.: -S/P pacemaker, dual chamber. Last check was in 2020 with 60% atrial paced and no ventricular pacing. On aspirin 81 mg daily. -Vasovagal syncope: midodrine 5 mg TID. -MELISSA: On lorazepam 0.5 mg BID prn (uses rarely). -Hypokalemia: On potassium 10 mEq daily. History summary Mrs Calvert is a 49yr female that was admitted by Alison New nurse practitioner in OBS status due to numbness of left arm and chest pain. She had came into the [facility] complaining of left arm numbness along with chest pain that had started that afternoon. Clinical notes outline a history of left arm numbness around 2000 hrs. 4-days prior (09/15) while watching her daughter's basketball game. At the time she described her HR as "off" lasted for about 45 minutes without Chest pain. She continued to feel "off" and fatigued the remainder of the night and into the next day. Per clinic notes she stated at '1245 her HR ~96 bpm per her watch as she felt it racing. Around 1310, felt chest pain above her left breast (throbbing in nature) with slight nausea. Pain almost resolved by 1348. Continues to have some left arm numbness in the biceps area at present. No chest pain. Associated nausea, severe fatigue. No dizziness, headache, reflux, vomiting. No treatment modalities tried. No injury to the arm/shoulder.' Pertinent clinical work-up/findings --ECG, NSR with mild t-wave inversion in single lead V2 however shallow (~1mm) changed from EKG dated (01/2018). --Trop normal --Tsh 1.37 --mg 2.0 Hospital course Completely uneventful with no aberrancy on ECG throughout the night I reviewed telemetry strips. On rounds she was resting comfortably, alert and oriented, denied any overnight concerns, BBP~108. Chest pain numbness or shortness of breath, cardio biomarkers x2 normal, x-ray normal. She was given a brisk walk on the floor without any chest pain or telemetry concerns Medication changes/adjustments upon discharge --No Changes to current home medications Consultations I consulted with Gretta Choi NP Cardiology/EP-- she reviewed patients' timed symptoms with pacemaker--no concerns Disposition Discharged from OBS status to self-mcc, she will follow up with Alison New NP [facility], she is to report any further symptoms - General Info Functional Status: Reports: Pain Controlled - Review of Systems General: Reports: No Symptoms HEENT: Reports: No Symptoms Pulmonary: Reports: No Symptoms Cardiovascular: Reports: No Symptoms Gastrointestinal: Reports: No Symptoms Genitourinary: Reports: No Symptoms Musculoskeletal: Reports: No Symptoms Skin: Reports: No Symptoms Neurological: Reports: No Symptoms Psychiatric: Reports: No Symptoms - Patient Data Vitals - Most Recent: Last Vital Signs Temp 98.2 F 09/20/20 07:00 Pulse 64 09/20/20 07:00 Resp 16 09/20/20 07:00 BP 117/77 09/20/20 07:00 Pulse Ox 97 09/20/20 07:00 Weight - Most Recent: 131 lb 11.2 oz I&O - Last 24 hours: Intake & Output 09/19/20 09/20/20 09/20/20 22:59 06:59 14:59 Intake Total 420 100 Output Total 1400 600 Balance -980 -500 Lab Results - Last 24 hrs: Laboratory Results - last 24 hr 09/19/20 09/20/20 Range/Units 21:10 03:30 Troponin I < 0.017 < 0.017 (0.000-0.056) ng/mL Med Orders - Current: Current Medications Acetaminophen (Tylenol) 650 mg PO Q4H PRN PRN Reason: mild pain Aspirin (Halfprin) 81 mg PO DAILY [facility] Last Admin: 09/20/20 09:20 Dose: 81 mg Documented by: Atropine Sulfate (Atropine 0.1 Mg/Ml) 0 mg IVPUSH ASDIRECTED PRN PRN Reason: Heart. Epinephrine HCl (Epinephrine 1:10,000) 1 mg IVPUSH ASDIRECTED PRN PRN Reason: Heart. Lidocaine HCl (Xylocaine 2%) 0 mg IVPUSH ASDIRECTED PRN PRN Reason: Heart. Lorazepam (Ativan) 0.5 mg PO BID PRN PRN Reason: Anxiety Last Admin: 09/20/20 02:52 Dose: 0.5 mg Documented by: Midodrine (Midodrine) 5 mg PO TID@0900,1300,2100 [facility] Last Admin: 09/20/20 09:20 Dose: 5 mg Documented by: Nitroglycerin (Nitrostat) 0.4 mg SL ASDIRECTED PRN PRN Reason: Heart. Ondansetron HCl (Zofran Odt) 4 mg PO Q4H PRN PRN Reason: Nausea Potassium Chloride (Klor-Con 10) 10 meq PO DAILY [facility] Last Admin: 09/20/20 09:20 Dose: 10 meq Documented by: Sodium Chloride (Saline Flush) 10 ml FLUSH Q8HR PRN PRN Reason: keep vein open Discontinued Medications Aspirin (Aspirin) 243 mg PO ONETIME ONE Stop: 09/19/20 17:03 Last Admin: 09/19/20 20:06 Dose: Not Given Documented by: Aspirin (Aspirin) 243 mg PO ONETIME ONE Stop: 09/19/20 19:46 Last Admin: 09/19/20 20:05 Dose: 243 mg Documented by: - Exam Quality Assessment: Denies: Supplemental Oxygen General: Reports: Alert, Oriented Neck: Reports: Supple Lungs: Reports: Clear to Auscultation, Normal Respiratory Effort Cardiovascular: Reports: Regular Rate, Regular Rhythm Neurological: Reports: Normal Speech Psy/Mental Status: Reports: Alert
== END 2020-09-20 10:45 | disposition home or self-care (01) ==
LOC: KA.MS 16:41
PROVIDERS: ADMIT Nurse Practitioner Family; ATTEND Family Medicine
DX: R07.89 Other chest pain (principal); R55 Syncope and collapse; E87.6 Hypokalemia; R20.0 Anesthesia of skin; F41.1 Generalized anxiety disorder; Z88.7 Allergy status to serum and vaccine; Z95.0 Presence of cardiac pacemaker; Z88.8 Allergy status to other drugs, medicaments and biological substances; Z88.5 Allergy status to narcotic agent; Z20.822 Contact with and (suspected) exposure to COVID-19; Z79.82 Long term (current) use of aspirin; Z79.899 Other long term (current) drug therapy
CPT/HCPCS: 36415; 71046; 84484; A9270; G0378

== ENCOUNTER 2021-04-23 14:04 | Emergency (ER) | payer OTHER ==
[2021-04-23] MEDS ORDERED: Sodium Chloride 0.9% 1,000 ML IV ONE (14:20)
[2021-04-23] MEDS ORDERED: Ondansetron 4 MG/2 ML SDV IVPUSH ONE (14:20)
--- NOTE | 2021-04-23 14:57 | EDM.PDOC ---
ED HPI GENERAL MEDICAL PROBLEM - General Chief Complaint: General Stated Complaint: NAUSEA/SHORTNESS OF BREATH/NEWLY DIAGNOSED COVID Time Seen by Provider: 04/23/21 14:35 Source of Information: Reports: Patient History Limitations: Reports: No Limitations - History of Present Illness INITIAL COMMENTS - FREE TEXT/NARRATIVE: 50 YO WF PRESENTS TO ER COMPLAINING OF NAUSEA, FATIGUE, DECREASED APPETITE, NONPRODUCTIVE COUGH AND MILD SHORTNESS OF BREATH WHICH HAS BECOME PROGRESSIVE SINCE COVID DIAGNOSIS 04/19/2021. PT STATES THE NAUSEA AND ANOREXIA ARE WHAT IS BOTHERING HER THE MOST. PT DENIES CHEST PAIN, NO DIARRHEA, NO ACTIVE VOMITING. PT WITH INTERMITTENT FEVER/CHILLS WHICH HAS BEEN CONTROLLED WITH TYLENOL. PT DENIES HEADACHES OR NECK PAIN. PT DENIES COVID IMMUNIZATION OR PREVIOUS POSITIVE DIAGNOSIS. Duration: Day(s): (5) Location: Reports: Generalized Severity: Mild Improves with: Reports: None Worsens with: Reports: None Associated Symptoms: Reports: Cough, Fever/Chills, Malaise, Nausea/Vomiting, Shortness of Breath, Weakness Treatments GROUP FITNESS MANAGER: Reports: Other Medication(s) Other Treatments GROUP FITNESS MANAGER: zofran odt - Related Data Allergies Allergy/AdvReac Type Severity Reaction Status Date / Time citalopram Allergy Nausea Verified 04/23/21 14:48 codeine Allergy Anaphylactic Verified 04/23/21 14:48 Shock soy Allergy Headache Verified 04/23/21 14:48 tetanus and diphtheria Allergy Fever Verified 04/23/21 14:48 toxoids Yeast Allergy Headache Verified 04/23/21 14:48 Home Meds: Home Meds LORazepam 0.5 mg PO BID PRN 01/18/18 [History] Ondansetron [Ondansetron ODT] 4 mg PO Q4H PRN 01/18/18 [History] Ibuprofen 400 mg PO Q8H PRN 02/21/18 [History] L.acidoph,Paracasei, B.lactis [Probiotic] 1 cap PO BID 02/21/18 [History] Acetaminophen [Tylenol] 650 mg PO Q4HR PRN 09/19/20 [History] Aspirin [Aspirin EC] 81 mg PO DAILY 09/19/20 [History] Biotin 1,000 mcg PO DAILY 09/19/20 [History] Potassium Chloride [Klor-Con M10] 10 meq PO DAILY 09/19/20 [History] SUMAtriptan [Imitrex] 25 mg PO Q2HR PRN 09/19/20 [History] traMADol [Ultram] 50 mg PO Q6HR PRN 09/19/20 [History] valACYclovir [Valtrex] 2,000 mg PO Q12HR PRN 09/19/20 [History] Metoclopramide HCl [Reglan] 10 mg PO Q8HR PRN #6 tablet 04/23/21 [Rx] pindoloL [Pindolol] 2.5 mg PO BID 04/23/21 [History] Past Medical History HEENT History: Reports: Other (See Below) Other HEENT History: glasses and/or contacts Cardiovascular History: Reports: Afib, Pacemaker, Syncope Other Cardiovascular History: pacer placed on 02/09/2108 for sick sinus syndrome - pacer does transmit via bedside monitor Respiratory History: Reports: None Gastrointestinal History: Reports: None Genitourinary History: Reports: None FUR EXAMINER History: Reports: , Other (See Below) Other FUR EXAMINER History: falopian tubes removed bilat, surgical removal of IUD, endometrial biopsy and culposcopy Musculoskeletal History: Reports: None Neurological History: Reports: Migraines Psychiatric History: Reports: Anxiety, Depression, Panic Attack Endocrine/Metabolic History: Reports: None Hematologic History: Reports: None Immunologic History: Reports: None Oncologic (Cancer) History: Reports: None Dermatologic History: Reports: None - Infectious Disease History Infectious Disease History: Reports: Chicken Pox - Past Surgical History Head Surgeries/Procedures: Reports: None HEENT Surgical History: Reports: Adenoidectomy, Tonsillectomy Cardiovascular Surgical History: Reports: Other (See Below) Other Cardiovascular Surgeries/Procedures: Implanted Loop recorder - has been removed Respiratory Surgical History: Reports: None GI Surgical History: Reports: None Endocrine Surgical History: Reports: None Neurological Surgical History: Reports: None Musculoskeletal Surgical History: Reports: Other (See Below) Other Musculoskeletal Surgeries/Procedures:: ACL repair L knee Dermatological Surgical History: Reports: None Social & Family History - Family History Family Medical History: No Pertinent Family History HEENT: Reports: None Cardiac: Reports: Hypertension Respiratory: Reports: None GI: Reports: None : Reports: None OBGYN: Reports: None Musculoskeletal: Reports: None Neurological: Reports: None Psychiatric: Reports: Depression Endocrine/Metabolic: Reports: Diabetes, type II Hematologic: Reports: Other (See Below) Immunologic: Reports: None Dermatologic: Reports: None - Tobacco Use Tobacco Use Status *Q: Never Tobacco User - Caffeine Use Caffeine Use: Reports: Coffee, Tea - Recreational Drug Use Recreational Drug Use: No ED ROS GENERAL - Review of Systems Review Of Systems: See Below Constitutional: Reports: Fever, Chills, Malaise, Fatigue, Decreased Appetite HEENT: Reports: Rhinitis Respiratory: Reports: Shortness of Breath, Cough Cardiovascular: Reports: No Symptoms Endocrine: Reports: No Symptoms GI/Abdominal: Reports: Anorexia, Nausea. Denies: Abdominal Pain, Diarrhea, Vomiting : Reports: No Symptoms Musculoskeletal: Reports: No Symptoms Skin: Reports: No Symptoms Neurological: Reports: No Symptoms Psychiatric: Reports: No Symptoms Hematologic/Lymphatic: Reports: No Symptoms Immunologic: Reports: No Symptoms ED EXAM, GENERAL - Physical Exam Exam: See Below Exam Limited By: No Limitations General Appearance: Alert, WD/WN, No Apparent Distress Head: Atraumatic, Normocephalic Neck: Normal Inspection, Supple, Non-Tender, Full Range of Motion Respiratory/Chest: No Respiratory Distress, Lungs Clear, Normal Breath Sounds, No Accessory Muscle Use, Chest Non-Tender Cardiovascular: Normal Peripheral Pulses, Regular Rate, Rhythm, No Edema, No Gallop, No JVD, No Murmur, No Rub GI/Abdominal: Normal Bowel Sounds, Soft, Non-Tender, No Organomegaly, No Distention, No Abnormal Bruit, No Mass Back Exam: Normal Inspection, Full Range of Motion, NT Extremities: Normal Inspection, Normal Range of Motion, Non-Tender, Normal Capillary Refill, No Pedal Edema Neurological: Alert, Oriented, CN II-XII Intact, Normal Cognition, Normal Gait, No Motor/Sensory Deficits Psychiatric: Normal Affect, Normal Mood Skin Exam: Warm, Dry, Intact, Normal Color, No Rash Lymphatic: No Adenopathy Course - Vital Signs Last Recorded V/S: Last Vital Signs Temp 98.2 F 04/23/21 15:19 Pulse 82 04/23/21 15:30 Resp 18 04/23/21 15:30 BP 127/74 04/23/21 15:30 Pulse Ox 95 04/23/21 15:30 - Orders/Labs/Meds Labs: Laboratory Tests 04/23/21 04/23/21 Range/Units 14:20 14:20 WBC 5.56 (5.00-10.00) 10^3/uL RBC 4.42 (3.80-5.50) 10^6/uL Hgb 13.7 (12.0-16.0) g/dL Hct 42.3 (37.0-47.0) % MCV 95.7 H (82.0-92.0) fL MCH 31.0 (27.0-31.0) pg MCHC 32.4 (32.0-36.0) g/dL RDW 12.4 (11.5-14.5) % Plt Count 250 (150-400) 10^3/uL MPV 9.5 (7.4-10.4) fL Immature Gran % (Auto) 0.0 (0.0-5.0) % Neut % (Auto) 81.6 H (50.0-70.0) % Lymph % (Auto) 14.0 L (20.0-40.0) % Cedar % (Auto) 4.0 (2.0-8.0) % Eos % (Auto) 0.0 L (1.0-3.0) % Baso % (Auto) 0.4 (0.0-1.0) % Neut # (Auto) 4.54 (2.50-7.00) 10^3/uL Lymph # (Auto) 0.78 L (1.00-4.00) 10^3/uL Cedar # (Auto) 0.22 (0.10-0.80) 10^3/uL Eos # (Auto) 0.00 L (0.10-0.30) 10^3/uL Baso # (Auto) 0.02 (0.00-0.10) 10^3/uL Immature Gran # (Auto) 0.00 (0.00-0.50) 10^3/uL Sodium 137 (136-145) mmol/L Potassium 3.7 (3.5-5.1) mmol/L Chloride 98 (98-107) mmol/L Carbon Dioxide 28.7 (21.0-32.0) mmol/L Anion Gap 14.0 (5-15) mmol/L BUN 3 L (7-18) mg/dL Creatinine 0.67 (0.51-1.17) mg/dL Est Cr Clr Drug Dosing 91.40 mL/min Estimated GFR (MDRD) > 60 mL/min Glucose 87 (70-140) mg/dL Calcium 8.2 L (8.7-10.3) mg/dL Total Bilirubin 0.3 (0.2-1.0) mg/dL AST 35 (15-37) U/L ALT 38 (14-63) U/L Alkaline Phosphatase 53 (46-116) U/L Total Protein 6.8 (6.4-8.2) g/dL Albumin 3.36 L (3.40-5.00) g/dL Lipase 134 (73-393) U/L Meds: Medications Discontinued Medications Generic Name Dose Route Start Last Admin Trade Name Freq PRN Reason Stop Dose Admin Sodium Chloride 1,000 mls @ 999 mls/hr 04/23/21 14:20 04/23/21 14:15 Normal Saline IV 04/23/21 15:20 999 mls/hr .BOLUS ONE Administration Ibuprofen 600 mg 04/23/21 15:13 04/23/21 15:19 Ibuprofen 600 Mg Tab PO 04/23/21 15:14 600 mg ONETIME ONE Administration Metoclopramide HCl 10 mg 04/23/21 15:41 04/23/21 15:47 Metoclopramide 10 Mg/2 Ml Sdv IVPUSH 04/23/21 15:42 10 mg ONETIME ONE Administration Ondansetron HCl 4 mg 04/23/21 14:20 04/23/21 14:18 Ondansetron 4 Mg/2 Ml Sdv IVPUSH 04/23/21 14:21 4 mg ONETIME ONE Administration - Radiology Interpretation Free Text/Narrative:: CXR-NAD Departure - Departure Time of Disposition: 16:30 Disposition: Home, Self-Care 01 Clinical Impression: Multiple persistent symptoms after COVID-19 - Discharge Information Prescriptions: Metoclopramide HCl [Reglan] 10 mg PO Q8HR PRN #6 tablet PRN Reason: Vomiting Instructions: 10 Things You Can Do to Manage Your COVID-19 Symptoms at Home - [facility] (02/15/2021) Referrals: Alison New, [employer]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 DISCHARGE HOME 2. PUSH FLUIDS 3. ALTERNATE TYLENOL 1G AND MOTRIN 600MG NEEDED CAN ADMINISTER EACH EVERY 6 HOURS 4. ZOFRAN 4MG ODT EVERY 6 HOURS NEEDED FOR NAUSEA 5. PEPCID 20MG TWICE X DAY 6. ZINC/VIT C/VIT D FOR VIRAL ILLNESS 7. ZYRTEC 10MG DAILY FOR COUGH/CONGESTION 8. FOLLOW UP FOR TELEMEDICINE APPOINTMENT NEXT 24-48 HOURS 9. RETURN TO ER FOR WORSENING SYMPTOMS Sepsis Event Note (ED) - Evaluation Sepsis Screening Result: No Definite Risk - Focused Exam Vital Signs: Vital Signs Temp Temp Pulse Resp BP Pulse Ox 04/23/21 15:30 82 18 127/74 95 04/23/21 15:19 98.2 F 04/23/21 15:15 86 16 124/78 95 04/23/21 15:00 77 16 128/75 97 04/23/21 14:45 76 16 124/76 97 04/23/21 14:31 98.2 F 77 18 113/70 98 04/23/21 14:30 76 16 113/63 97 04/23/21 14:15 77 16 116/69 96 - Assessment/Plan Assessment:: 1. COVID-19 ASSOCIATED SYMPTOMS Plan: 1. DISCHARGE HOME 2. PUSH FLUIDS 3. ALTERNATE TYLENOL 1G AND MOTRIN 600MG NEEDED CAN ADMINISTER EACH EVERY 6 HOURS 4. ZOFRAN 4MG ODT EVERY 6 HOURS NEEDED FOR NAUSEA 5. PEPCID 20MG TWICE X DAY 6. ZINC/VIT C/VIT D FOR VIRAL ILLNESS 7. ZYRTEC 10MG DAILY FOR COUGH/CONGESTION 8. FOLLOW UP FOR TELEMEDICINE APPOINTMENT NEXT 24-48 HOURS 9. RETURN TO ER FOR WORSENING SYMPTOMS
--- NOTE | 2021-04-23 15:06 | CR ---
[id number] RAD/RAD Chest PA or AP 1V EXAM: RAD Chest PA or AP 1V INDICATION: COUGH. COMPARISON: September 19, 2020. DISCUSSION: Left chest wall cardiac conduction device. Cardiomediastinal silhouette is normal in size and contour. No infiltrate, effusion, pneumothorax, or edema. IMPRESSION: No acute cardiopulmonary abnormality. Rl Oakes DO 04/23/21 1509 Thank you for allowing us to participate in the care of your patient.
[2021-04-23] MEDS ORDERED: Ibuprofen 600 MG Tab PO ONE (15:13)
[2021-04-23 15:22] LABS: CHLORIDE,CL 98 mmol/L (98-107); SODIUM,NA 137 mmol/L (136-145)
[2021-04-23] MEDS ORDERED: Metoclopramide 10 MG/2 ML SDV IVPUSH ONE (15:41)
== END 2021-04-23 15:50 | disposition home or self-care (01) ==
LOC: KA.ED 14:04
DX: R05 Cough (principal); R53.83 Other fatigue; R11.0 Nausea; R63.0 Anorexia; Z86.16 Personal history of COVID-19; Z88.5 Allergy status to narcotic agent; Z88.8 Allergy status to other drugs, medicaments and biological substances; Z88.7 Allergy status to serum and vaccine; Z79.899 Other long term (current) drug therapy
CPT/HCPCS: 36415; 71045; 80053; 83690; 85025; 96374; 96375; 99284; 99284-25; A9270-GY; J2405; J2765; J7030